=== PATIENT | male | born 1940 | race Caucasian/White ===

== ENCOUNTER 2016-11-18 11:28 | Inpatient (IN) | payer MEDICARE ==
[~2016-11-18] VITALS: Ht 188 cm; Wt 106.7 kg
[~2016-11-18 11:28] MED LIST: AMLO10TA2 PO; LISI40TA PO; ONDA8TAB9 PO; PRED20TA PO; PROC10TA78 PO
[2016-11-18 13:02] LABS: BLOOD UREA NITROGEN 12 mg/dL (7-18)
[2016-11-18 13:15] LABS: DIFF TOTAL CELLS COUNTED 100 CELL DIFF
[2016-11-18 13:19] LABS: ANISOCYTOSIS 1+; VERIFY COUNTS? YES
[2016-11-18 13:21] LABS: MONOS WITH VACUOLES 1+
[2016-11-18] MEDS ORDERED: SODIUM CHLORIDE FLUSH 10ML SYR IVF PRN (14:00)
[2016-11-18] MEDS ORDERED: ENOXAPARIN 100 MG/ML SQ ONE ×2 (14:00)
[2016-11-18] MEDS ORDERED: TEMAZEPAM 15 MG CAPSULE PO PRN (14:30)
[2016-11-18] MEDS ORDERED: ACETAMINOPHEN 325 MG TABLET PO PRN (14:30)
[2016-11-18] MEDS ORDERED: ENALAPRILAT 1.25 MG/ML, 2ML IVPush PRN (14:30)
[2016-11-18] MEDS ORDERED: POLYETHYLENE GLYCOL 17 GM PACKET PO PRN (14:30)
[2016-11-18] MEDS ORDERED: ONDANSETRON 2MG/ML, 2ML IVPush PRN (14:30)
[2016-11-18] MEDS ORDERED: morphine SULFATE 10 MG/ML, 1ML IVPush PRN (14:30)
[2016-11-18] MEDS ORDERED: HYDROcodone/APAP 5/325 TABLET PO PRN (14:30)
[2016-11-18] MEDS ORDERED: ALBUTEROL/IPRATROPIUM 2.5MG/0.5MG, 3 ML ONE (15:18)
[2016-11-18 20:00] VITALS: BP 149/97
[2016-11-19 02:00] VITALS: BP 128/80
[2016-11-19] MEDS: ENOXAPARIN 100 MG/ML SQ SCH ×2 (02:31→14:44)
[2016-11-19 06:06] LABS: DIFF TOTAL CELLS COUNTED 100 CELL DIFF
[2016-11-19 06:08] LABS: ANISOCYTOSIS 1+; POLYCHROMASIA 1+; VERIFY COUNTS? YES
[2016-11-19 06:09] LABS: HYPOCHROMIA 1+
[2016-11-19 06:11] LABS: SMALL PLATELETS 1+
[2016-11-19 06:45] VITALS: BP 142/88
[2016-11-19] MEDS: LISINOPRIL 20 MG TABLET PO SCH (09:19)
[2016-11-19] MEDS: AMLODIPINE 5 MG TABLET PO SCH (09:20)
[2016-11-19 13:15] VITALS: BP 117/70
[2016-11-19] MEDS ORDERED: MAGNESIUM SULFATE PMX 4GM/100M 100 ML IV ONE (14:00)
[2016-11-19 19:02] VITALS: BP 100/62
[2016-11-20 01:18] VITALS: BP 126/70
[2016-11-20] MEDS: ENOXAPARIN 100 MG/ML SQ SCH (01:27)
[2016-11-20 08:18] VITALS: BP 129/79
[2016-11-20] MEDS ORDERED: RIVA20TA PO (09:42)
[2016-11-20] MEDS ORDERED: RIVA15TA PO (09:42)
[2016-11-20] MEDS: AMLODIPINE 5 MG TABLET PO SCH (09:54)
[2016-11-20] MEDS: LISINOPRIL 20 MG TABLET PO SCH (09:55)
[2016-11-20] MEDS ORDERED: RIVAROXABAN 15 MG TABLET PO SCH (10:00)
== END 2016-11-20 13:28 | disposition home or self-care (01) | DRG 304 ==
LOC: ED 12:13 → SUATTDRO 13:49 → EDIP 13:56 → 4WST 16:03
PROVIDERS: ADMIT Internal Medicine; ATTEND Internal Medicine
DX: I10 Essential (primary) hypertension (principal); I26.99 Other pulmonary embolism without acute cor pulmonale; K76.89 Other specified diseases of liver; D3A.8 Other benign neuroendocrine tumors; D53.9 Nutritional anemia, unspecified; D72.829 Elevated white blood cell count, unspecified; D73.4 Cyst of spleen; I35.8 Other nonrheumatic aortic valve disorders; I77.819 Aortic ectasia, unspecified site; E78.5 Hyperlipidemia, unspecified; M21.372 Foot drop, left foot; Z92.3 Personal history of irradiation; Z82.49 Family history of ischemic heart disease and other diseases of the circulatory system
CPT/HCPCS: 36415; 80048; 80061; 81003; 82040; 83735; 84100; 85025; 85610; 85730; 93306; 93970; 96372; J1650; J3475; J7512

== ENCOUNTER → 2016-11-30 | Outpatient (CLI) | payer MEDICARE ==
[~2016-11-30] MED LIST changes: +GADOBUTROL 10 MMOL/10 ML PFS ONE; +RIVA15TA PO; +RIVA20TA PO
== END | disposition home or self-care (01) ==
LOC: CFH 14:19
PROVIDERS: ATTEND Specialist
DX: C78.1 Secondary malignant neoplasm of mediastinum (principal); G31.9 Degenerative disease of nervous system, unspecified; I67.82 Cerebral ischemia; R90.82 White matter disease, unspecified
CPT/HCPCS: 70553; A9585

== ENCOUNTER → 2016-12-01 | Outpatient (CLI) | payer MEDICARE ==
[~2016-12-01] MED LIST changes: -GADOBUTROL 10 MMOL/10 ML PFS ONE
== END | disposition home or self-care (01) ==
LOC: ROC 14:12
PROVIDERS: ATTEND Radiology Radiation Oncology
DX: R22.1 Localized swelling, mass and lump, neck (principal)
CPT/HCPCS: G0463

== ENCOUNTER → 2017-10-03 | Outpatient (CLI) | payer MEDICARE ==
[~2017-10-03] MED LIST changes: +OMNIPAQUE 350 MG/ML, 100ML BOTTLE ONE
== END | disposition home or self-care (01) ==
LOC: CFH 09:18
PROVIDERS: ATTEND Specialist
DX: C7A.1 Malignant poorly differentiated neuroendocrine tumors (principal); R91.8 Other nonspecific abnormal finding of lung field; K76.89 Other specified diseases of liver
CPT/HCPCS: 71260; 74177; Q9967

== ENCOUNTER → 2017-12-04 | Outpatient (CLI) | payer MEDICARE ==
[~2017-12-04] MED LIST changes: -OMNIPAQUE 350 MG/ML, 100ML BOTTLE ONE
== END | disposition home or self-care (01) ==
LOC: CVU 10:49
PROVIDERS: ATTEND Internal Medicine Cardiovascular Disease
DX: I87.2 Venous insufficiency (chronic) (peripheral) (principal); R60.0 Localized edema; I35.0 Nonrheumatic aortic (valve) stenosis; I10 Essential (primary) hypertension; E78.5 Hyperlipidemia, unspecified
CPT/HCPCS: 93306; 93970

== ENCOUNTER → 2018-05-07 | Outpatient (CLI) | payer MEDICARE ==
[~2018-05-07] MED LIST changes: -AMLO10TA2 PO; +AMLO10TA6 PO; +OMNIPAQUE 350 MG/ML, 100ML BOTTLE ONE
== END | disposition home or self-care (01) ==
LOC: RAD 09:50
PROVIDERS: ATTEND Specialist
DX: N40.0 Benign prostatic hyperplasia without lower urinary tract symptoms (principal); I25.10 Atherosclerotic heart disease of native coronary artery without angina pectoris
CPT/HCPCS: 71260; 74177; Q9967

== ENCOUNTER → 2018-06-20 | Outpatient (CLI) | payer MEDICARE ==
[~2018-06-20] MED LIST changes: -AMLO10TA6 PO; +AMLO10TA8 PO; -OMNIPAQUE 350 MG/ML, 100ML BOTTLE ONE; +OMNIPAQUE 350 MG/ML, 75ML BOTTLE ONE
== END | disposition home or self-care (01) ==
LOC: CFH 10:02
PROVIDERS: ATTEND Specialist
DX: R91.1 Solitary pulmonary nodule (principal); J98.4 Other disorders of lung; I25.10 Atherosclerotic heart disease of native coronary artery without angina pectoris
CPT/HCPCS: 71260; Q9967

== ENCOUNTER → 2018-10-30 | Outpatient (CLI) | payer MEDICARE ==
[~2018-10-30] MED LIST changes: -OMNIPAQUE 350 MG/ML, 75ML BOTTLE ONE
== END | disposition home or self-care (01) ==
LOC: PETCFH 09:48
PROVIDERS: ATTEND Specialist
DX: C76.0 Malignant neoplasm of head, face and neck (principal)
CPT/HCPCS: 78815; A9552

== ENCOUNTER 2018-11-19 05:56 | Day surgery (SDC) | payer MEDICARE ==
[~2018-11-19] VITALS: Ht 188 cm; Wt 103.0 kg
[2018-11-19 07:06] VITALS: BP 154/89
== END 2018-11-19 09:15 | disposition home or self-care (01) ==
LOC: OUT 05:56
PROVIDERS: ATTEND Specialist
DX: C7A.00 Malignant carcinoid tumor of unspecified site (principal); I10 Essential (primary) hypertension
CPT/HCPCS: 71250

== ENCOUNTER 2018-12-17 07:18 | Day surgery (SDC) | payer MEDICARE ==
[2018-12-17] MEDS ORDERED: SODIUM CHLORIDE 0.9% 1,000 ML IV SCH (08:00)
== END 2018-12-17 08:10 | disposition home or self-care (01) ==
LOC: OUT 07:18
PROVIDERS: ATTEND Internal Medicine
DX: Z02.9 Encounter for administrative examinations, unspecified (principal)

== ENCOUNTER 2018-12-17 14:29 | Outpatient (CLI) | payer MEDICARE | END 2018-12-17 23:59 | disposition home or self-care (01) | LOC: CFH 14:29 | PROVIDERS: ATTEND Internal Medicine | DX: J98.11 Atelectasis (principal); R91.8 Other nonspecific abnormal finding of lung field; M19.012 Primary osteoarthritis, left shoulder; M19.011 Primary osteoarthritis, right shoulder; M51.34 Other intervertebral disc degeneration, thoracic region | CPT/HCPCS: 71250 ==